=== PATIENT | female | born 1975 | race Caucasian/White ===

== ENCOUNTER → 2018-08-01 | Outpatient (CLI) | payer OTHER ==
[~2018-08-01] MED LIST: CETI10 PO; HYDACE5 PO; NUVA RING; SERT100 PO
[2018-08-03 14:08] LABS: HPV 16 Negative (Negative); HPV OTHER HR TYPES Negative (Negative)
[2018-08-06 05:07] LABS: HPV 18 Negative (Negative)
== END | disposition home or self-care (01) ==
LOC: LAB 19:03 → LAB SHORT 19:03
PROVIDERS: Obstetrics & Gynecology Gynecology
DX: Z12.4 Encounter for screening for malignant neoplasm of cervix (principal)
CPT/HCPCS: 87624; G0123

== ENCOUNTER → 2018-08-08 | Outpatient (CLI) | payer OTHER ==
[2018-08-08 15:16] LABS: Source, Urine Clean Catch
[2018-08-08 15:28] LABS: Appearance, Urine Cloudy (Clear); Color, Urine Yellow (P-Yellow); Leukocyte Esterase, Urine Trace (Neg); Nitrite, Urine Neg (Neg); Specific Gravity, Urine 1.015 (1.003-1.022)
[2018-08-08 15:29] LABS: Bilirubin, Urine Neg (Neg); Blood, Urine 2+ (Neg); Glucose Qualitative, Urine Neg (Normal); Ketones, Urine Neg (Neg); Protein, Urine Trace (Neg); Urobilinogen, Urine NORM (Normal)
[2018-08-08 15:35] LABS: Bacteria Not Seen /hpf; Red Blood Cells, Urine 50-100 /hpf (0-2); Squamous Epithelial Cells Few /hpf (Few)
== END ==
LOC: LAB SHORT 15:07 → LAB EV 15:07
PROVIDERS: Nurse Practitioner
DX: R35.0 Frequency of micturition (principal)
CPT/HCPCS: 81001

== ENCOUNTER → 2019-02-02 | Outpatient (CLI) | payer OTHER ==
[2019-02-03 12:42] LABS: Candida species (DNA Probe) Positive (NEGATIVE); G. vaginalis (DNA Probe) Negative (NEGATIVE); T. vaginalis (DNA Probe) Negative (NEGATIVE)
[2019-02-05 00:06] LABS: CHLAMYDIA TRACHOMATIS, NAA Negative (Negative); NEISSERIA GONORRHOEAE, NAA Negative (Negative)
== END | disposition home or self-care (01) ==
LOC: LAB EV 11:48 → LAB SHORT 11:48
PROVIDERS: Physician Assistant
DX: R10.2 Pelvic and perineal pain (principal)
CPT/HCPCS: 87086; 87480; 87491; 87510; 87591; 87660

== ENCOUNTER → 2019-06-10 | Outpatient (CLI) | payer OTHER | END | disposition home or self-care (01) | LOC: LAB SHORT 06-09 10:00 → OLS 10:00 → LAB FUT 05-08 09:10 | DX: C82.00 Follicular lymphoma grade I, unspecified site (principal) | CPT/HCPCS: 81050 ==

== ENCOUNTER → 2020-04-28 | Outpatient (CLI) | payer OTHER | END | disposition home or self-care (01) | LOC: LAB SHORT 14:30 → LAB EV 14:30 | DX: N39.0 Urinary tract infection, site not specified (principal) | CPT/HCPCS: 87077; 87086; 87186 ==

== ENCOUNTER 2020-06-05 12:04 | Emergency (ER) | payer OTHER ==
[~2020-06-05] VITALS: Ht 165.1 cm; Wt 79.8 kg
[~2020-06-05 12:04] MED LIST changes: -BUSP5 PO; -CITA20 PO; -LABE100 PO; -METF500 PO; -Nortriptyline H50 MG PO; -OMEP20ER PO; -POTCIT10 PO; -SUMA25 PO; -TAMS.4ER PO; -TOPI50 PO
[2020-06-05] MEDS ORDERED: BUSP5 PO (12:15)
[2020-06-05] MEDS ORDERED: CITA20 PO (12:15)
[2020-06-05] MEDS ORDERED: LABE100 PO (12:16)
[2020-06-05] MEDS ORDERED: METF500 PO (12:16)
[2020-06-05] MEDS ORDERED: Nortriptyline H50 MG PO (12:17)
[2020-06-05] MEDS ORDERED: OMEP20ER PO (12:17)
[2020-06-05] MEDS ORDERED: SUMA25 PO (12:18)
[2020-06-05] MEDS ORDERED: POTCIT10 PO (12:18)
[2020-06-05] MEDS ORDERED: TAMS.4ER PO (12:18)
[2020-06-05] MEDS ORDERED: TOPI50 PO (12:19)
[2020-06-05 12:35] LABS: BASOPHILS ABSOLUTE AUTO 0.05 K/mm3 (0.00-0.23); BASOPHILS PERCENT AUTO 1 % (0-2); EOSINOPHILS ABSOLUTE AUTO 0.45 K/mm3 (0.00-0.68); EOSINOPHILS PERCENT AUTO 8 % (0-6); Hematocrit 40.3 % (33.0-51.0); Hemoglobin 12.4 g/dL (11.5-16.0); IMMATURE GRAN ABSOLUTE AUTO 0.06 K/mm3 (0.00-0.10); IMMATURE GRAN PERCENT AUTO 1 % (0-1); LYMPHOCYTES ABSOLUTE AUTO 0.47 K/mm3 (0.84-5.20); LYMPHOCYTES PERCENT AUTO 8 % (21-46); MONOCYTES ABSOLUTE AUTO 0.58 K/mm3 (0.16-1.47); MONOCYTES PERCENT AUTO 10 % (4-13); Mean Corpuscular HGB 30.1 pg (26.0-34.0); Mean Corpuscular HGB Conc 30.8 g/dL (31.5-36.5); Mean Corpuscular Volume 98 fL (80-100); NEUTROPHILS ABSOLUTE AUTO 4.25 K/mm3 (1.96-9.15); NEUTROPHILS PERCENT AUTO 73 % (41-73); Platelet Count 267 K/mm3 (150-400); RDW Coefficient Variation 12.9 % (11.7-14.2); RDW Standard Deviation 46.2 fL (35.1-46.3); Red Blood Cell Count 4.12 M/mm3 (3.80-5.20); White Blood Cell Count 5.86 K/mm3 (4.00-11.30)
[2020-06-05 12:53] LABS: Alanine Aminotransfer (ALT/SGP 41 U/L (12-78); Albumin, Blood 3.8 g/dL (3.4-5.0); Albumin/Globulin Ratio 1.4 (0.8-1.8); Alk Phos 104 U/L (50-136); Anion Gap 2 mmol/L (6-16); Aspartate Aminotrans (AST/SGOT 17 U/L (12-37); Bilirubin, Total 0.2 mg/dL (0.1-1.0); Blood Urea Nitrogen 22 mg/dL (8-24); CO2, Blood 29 mmol/L (21-32); Calcium, Blood 9.2 mg/dL (8.5-10.1); Chloride, Blood 110 mmol/L (98-108); Creatinine, Blood 0.92 mg/dL (0.40-1.00); Globulin, Blood 2.8 g/dL (2.2-4.0); Glomerular Filtration Rate >60 (60-); Glucose, Blood 77 mg/dL (70-99); Potassium, Blood 6.2 mmol/L (3.5-5.5); Sodium, Blood 141 mmol/L (136-145); Total Protein, Blood 6.6 g/dL (6.4-8.2)
== END 2020-06-05 15:37 | disposition home or self-care (01) ==
LOC: ER 12:04
PROVIDERS: Emergency Medicine
DX: E87.5 Hyperkalemia (principal); Z88.5 Allergy status to narcotic agent; Z79.899 Other long term (current) drug therapy; Z79.84 Long term (current) use of oral hypoglycemic drugs; Z87.442 Personal history of urinary calculi
CPT/HCPCS: 80053; 85025; 93005; 93010; 96361; 96374; 96375; 99284-25; J1940; J7030

== ENCOUNTER → 2020-06-05 | Outpatient (CLI) | payer OTHER ==
[~2020-06-05] MED LIST changes: +BUSP5 PO; +CITA20 PO; +LABE100 PO; +METF500 PO; +Nortriptyline H50 MG PO; +OMEP20ER PO; +POTCIT10 PO; +SUMA25 PO; +TAMS.4ER PO; +TOPI50 PO
[2020-06-05 11:22] LABS: BASOPHILS ABSOLUTE AUTO 0.06 K/mm3 (0.00-0.23); BASOPHILS PERCENT AUTO 1 % (0-2); EOSINOPHILS ABSOLUTE AUTO 0.44 K/mm3 (0.00-0.68); EOSINOPHILS PERCENT AUTO 8 % (0-6); Hematocrit 40.3 % (33.0-51.0); Hemoglobin 13.1 g/dL (11.5-16.0); IMMATURE GRAN ABSOLUTE AUTO 0.03 K/mm3 (0.00-0.10); IMMATURE GRAN PERCENT AUTO 1 % (0-1); LYMPHOCYTES ABSOLUTE AUTO 0.39 K/mm3 (0.84-5.20); LYMPHOCYTES PERCENT AUTO 7 % (21-46); MONOCYTES ABSOLUTE AUTO 0.43 K/mm3 (0.16-1.47); MONOCYTES PERCENT AUTO 8 % (4-13); Mean Corpuscular HGB 30.8 pg (26.0-34.0); Mean Corpuscular HGB Conc 32.5 g/dL (31.5-36.5); Mean Corpuscular Volume 95 fL (80-100); NEUTROPHILS ABSOLUTE AUTO 4.04 K/mm3 (1.96-9.15); NEUTROPHILS PERCENT AUTO 75 % (41-73); Platelet Count 297 K/mm3 (150-400); RDW Coefficient Variation 13.1 % (11.7-14.2); Red Blood Cell Count 4.26 M/mm3 (3.80-5.20); White Blood Cell Count 5.39 K/mm3 (4.00-11.30)
[2020-06-05 11:30] LABS: Alanine Aminotransfer (ALT/SGP 47 U/L (12-78); Albumin, Blood 4.1 g/dL (3.4-5.0); Albumin/Globulin Ratio 1.2 (0.8-1.8); Alk Phos 112 U/L (40-126); Anion Gap 6 mmol/L (6-16); Aspartate Aminotrans (AST/SGOT 23 U/L (12-37); Bilirubin, Total 0.2 mg/dL (0.1-1.0); Blood Urea Nitrogen 23 mg/dL (8-24); Bun/Creatinine Ratio 26.1 (12.0-20.0); CO2, Blood 29 mmol/L (21-32); Calcium, Blood 9.6 mg/dL (8.5-10.1); Chloride, Blood 106 mmol/L (98-108); Creatinine, Blood 0.88 mg/dL (0.40-1.00); Globulin, Blood 3.4 g/dL (2.2-4.0); Glomerular Filtration Rate >60 (60-); Glucose, Blood 88 mg/dL (70-99); Sodium, Blood 141 mmol/L (136-145); Total Protein, Blood 7.5 g/dL (6.4-8.2)
[2020-06-05 11:37] LABS: Potassium, Blood 6.5 mmol/L (3.5-5.5)
== END | disposition home or self-care (01) ==
LOC: LAB EV 11:17 → LAB SHORT 11:17
PROVIDERS: Physician Assistant
DX: L29.9 Pruritus, unspecified (principal)
CPT/HCPCS: 80053; 85025

== ENCOUNTER → 2021-07-21 | Outpatient (CLI) | payer OTHER ==
[~2021-07-21] MED LIST changes: +BUSP5 PO; +CITA20 PO; +LABE100 PO; +METF500 PO; +Nortriptyline H50 MG PO; +OMEP20ER PO; +POTCIT10 PO; +SUMA25 PO; +TAMS.4ER PO; +TOPI50 PO
== END ==
LOC: LAB SHORT 10:09
DX: L08.9 Local infection of the skin and subcutaneous tissue, unspecified (principal)
CPT/HCPCS: 87070; 87077; 87147; 87186; 87205

== ENCOUNTER → 2021-07-30 | Outpatient (CLI) | payer OTHER ==
[2021-08-06 13:08] LABS: BRUSHITE 0.94 ratio (0.00-3.00); CALCIUM OXALATE 4.44 ratio (0.00-6.00); CALCIUM, URINE 102.2 mg/24 hr (0.0-320.0); CALCIUM, URINE 7.3 mg/dL (Not Estab.); CHLORIDE URINE 168 (38-210); CITRIC ACID (CITRATE) 23 mg/L (Not Estab.); CITRIC ACID(CITRATE) 32 mg/24 hr (320-1240); CREATININE, URINE 59.7 mg/dL (Not Estab.); CREATININE, URINE 835.8 mg/24 hr (800.0-1800.0); MAGNESIUM, URINE 4.8 mg/dL (Not Estab.); OSMOLALITY, URINE 586 (300-900); SODIUM, URINE 130 mmol/L (Not Estab.); SODIUM, URINE 182 (39-258); STRUVITE 0.01 ratio (0.00-1.00); URIC ACID 1.56 ratio (0.00-1.20); URINE VOLUME 1400 mL/24 hr (600-1600); URINE VOLUME (PRESERVATIVE) 1400 mL/24 hr (600-1600)
== END ==
LOC: LAB 11:00 → LAB SHORT 11:00
PROVIDERS: Urology
DX: N20.2 Calculus of kidney with calculus of ureter (principal)
CPT/HCPCS: 81003; 81050; 82131; 82140; 82340; 82436; 82507; 82570; 83735; 83935; 83945; 84105; 84133; 84300; 84392; 84560

== ENCOUNTER → 2021-09-29 | Outpatient (CLI) | payer OTHER | END | disposition home or self-care (01) | LOC: LAB SHORT 15:20 | DX: R73.03 Prediabetes (principal) | CPT/HCPCS: 36415; 83036 ==

== ENCOUNTER → 2022-03-30 | Outpatient (CLI) | payer OTHER ==
[2022-03-30 18:13] LABS: Appearance, Urine Hazy (Clear); Bilirubin, Urine Neg (Neg); Blood, Urine 1+ (Neg); Color, Urine Yellow (P-Yellow); Glucose Qualitative, Urine Neg (Neg); Ketones, Urine Neg (Neg); Leukocyte Esterase, Urine 3+ (Neg); Nitrite, Urine Neg (Neg); Protein, Urine 1+ (Neg); Specific Gravity, Urine 1.015 (1.003-1.022); Urobilinogen, Urine NORM (Normal)
[2022-03-30 18:38] LABS: White Blood Cells, Urine TNTC /hpf (0-5)
[2022-03-30 18:39] LABS: Bacteria Few /hpf; Squamous Epithelial Cells Few /hpf (Few)
[2022-03-30 18:40] LABS: Transitional Epithelial Cells Few /hpf (0-Rare)
[2022-03-31 10:23] LABS: Candida species (DNA Probe) Negative (NEGATIVE); G. vaginalis (DNA Probe) Positive (NEGATIVE); T. vaginalis (DNA Probe) Negative (NEGATIVE)
== END ==
LOC: LAB SHORT 16:30
PROVIDERS: Family Medicine
DX: R30.0 Dysuria (principal); L29.2 Pruritus vulvae
CPT/HCPCS: 81001; 87077; 87086; 87186; 87480; 87510; 87660

== ENCOUNTER → 2022-06-06 | Outpatient (CLI) | payer OTHER ==
[2022-06-06 18:38] LABS: White Blood Cells, Urine 25-50 /hpf (0-5)
[2022-06-06 18:39] LABS: Bacteria Few /hpf; Squamous Epithelial Cells Few /hpf (Few)
[2022-06-06 18:40] LABS: Hyaline Casts 0-2 /lpf (0-2); Transitional Epithelial Cells Rare /hpf (0-Rare)
== END | disposition home or self-care (01) ==
LOC: LAB 16:00 → LAB SHORT 16:00
PROVIDERS: Family Medicine
DX: R39.15 Urgency of urination (principal)
CPT/HCPCS: 81015

== ENCOUNTER → 2022-06-06 | Outpatient (CLI) | payer OTHER | END | disposition home or self-care (01) | LOC: LAB 16:00 → LAB SHORT 16:00 | DX: R39.15 Urgency of urination (principal) | CPT/HCPCS: 87077; 87086; 87186 ==

== ENCOUNTER → 2022-06-27 | Outpatient (CLI) | payer OTHER ==
[2022-06-30 01:07] LABS: CHLAMYDIA TRACHOMATIS, NAA Negative (Negative); HPV 16 Negative (Negative); HPV 18 Negative (Negative); HPV OTHER HR TYPES Negative (Negative)
== END | disposition home or self-care (01) ==
LOC: LAB SHORT 19:01 → LAB 19:01
PROVIDERS: Advanced Practice Midwife
DX: Z01.419 Encounter for gynecological examination (general) (routine) without abnormal findings (principal); Z11.3 Encounter for screening for infections with a predominantly sexual mode of transmission
CPT/HCPCS: 87491; 87591; 87624; G0123

== ENCOUNTER 2022-10-21 08:10 | Day surgery (SDC) | payer OTHER ==
[~2022-10-21] VITALS: Ht 165.1 cm; Wt 79.1 kg
[2022-10-21] MEDS ORDERED: VENL75ER (08:55)
[2022-10-21] MEDS ORDERED: EFFEXOR XR150 MG (08:55)
== END 2022-10-21 11:25 | disposition home or self-care (01) ==
LOC: ORSCSDS 08:10
PROVIDERS: Internal Medicine Gastroenterology
PROC: 0DB98ZX Excision of Duodenum, Via Natural or Artificial Opening Endoscopic, Diagnostic (ICD-10-PCS; principal; 2022-10-21 09:45)
PROC: 0DB78ZX Excision of Stomach, Pylorus, Via Natural or Artificial Opening Endoscopic, Diagnostic (ICD-10-PCS; principal; 2022-10-21 09:45)
PROC: 0DBN8ZX Excision of Sigmoid Colon, Via Natural or Artificial Opening Endoscopic, Diagnostic (ICD-10-PCS; principal; 2022-10-21 09:45)
DX: R10.13 Epigastric pain (principal); K59.00 Constipation, unspecified; R19.4 Change in bowel habit; R11.2 Nausea with vomiting, unspecified; D12.5 Benign neoplasm of sigmoid colon; F41.8 Other specified anxiety disorders; J45.909 Unspecified asthma, uncomplicated; Z85.72 Personal history of non-Hodgkin lymphomas; Z79.899 Other long term (current) drug therapy
CPT/HCPCS: 82947; 88305; 88342; J2704; J7120

== ENCOUNTER → 2023-08-11 | Outpatient (CLI) | payer OTHER ==
[~2023-08-11] MED LIST changes: +EFFEXOR XR150 MG; +VENL75ER
== END | disposition home or self-care (01) ==
LOC: LAB SHORT 17:33 → LAB 17:33
DX: R82.79 Other abnormal findings on microbiological examination of urine (principal)
CPT/HCPCS: 87077; 87086; 87186

== ENCOUNTER → 2023-12-01 | Outpatient (CLI) | payer OTHER | LOC: LAB 14:09 → LAB SHORT 14:09 | DX: D50.9 Iron deficiency anemia, unspecified (principal) ==

== ENCOUNTER 2024-01-18 11:52 | Day surgery (SDC) | payer OTHER ==
[2024-01-18] MEDS ORDERED: [UNRECOGNIZED DRUG - MIXTURE] RIGHTEYE SCH (14:10)
[2024-01-18] MEDS ORDERED: [UNRECOGNIZED DRUG - MIXTURE] RIGHTEYE SCH (16:05)
--- NOTE | 2024-01-18 17:15 | NUR ---
PATIENT RECIEVED 1ST DOSE OF EYE DROPS, TOBRA AND VANCO, 5 MINUTES APART. PATIENT AND HER DAUGHTER AND ANOTHER FAMILY MEMBER EDUCATED ON HOW TO ADMINISTER EYE DROPS AND FREQUENCY AND DOSAGE OF THE EYE DROPS. PATIENT AND FAMILY DEMONSTRATED PROPER ADMINISTRATION AND DENIED ANY QUESTIONS
== END 2024-01-18 17:05 | disposition home or self-care (01) ==
LOC: ATC 11:52
DX: H16.001 Unspecified corneal ulcer, right eye (principal); Z79.84 Long term (current) use of oral hypoglycemic drugs; Z79.899 Other long term (current) drug therapy
CPT/HCPCS: 99211; A9270; J3260; J3370

== ENCOUNTER 2024-02-01 02:21 | Day surgery (SDC) | payer OTHER ==
[2024-02-01] MEDS ORDERED: PEG RIGHTEYE SCH ×2 (07:15)
[2024-02-01] MEDS ORDERED: [UNRECOGNIZED DRUG - OTHER] RIGHTEYE SCH (07:15)
[2024-02-01] MEDS ORDERED: [UNRECOGNIZED DRUG - MIXTURE] RIGHTEYE SCH (07:15)
[2024-02-01] MEDS ORDERED: HYPROMELLOSE RIGHTEYE SCH ×2 (07:15)
[2024-02-01] MEDS ORDERED: [UNRECOGNIZED DRUG - OTHER] RIGHTEYE SCH (07:15)
[2024-02-01 09:40] VITALS: BP 132/86
--- NOTE | 2024-02-01 10:15 | NUR ---
EYE DROPS ADMINISTERED TO PATIENT 5 MINUTES APART. TWO FAMILY MEMBERS PRESENT WHO SAID THEYWILL ASSIST WITH ADMINISTRATION. DEMONSTRATED PROPER ADMINISTRATION AND HAND HYGIENE. PATIENT QUESTIONED ANSWERED. ENCOURAGED PATIENT TO CALL DR TREADWELL OFFICE OR ANSWERING SERVICE WITH ANY FURTHER QUESTIONS OR CONCERNS AND TO FOLLOW HIS INSTRUCTIONS FOR MEDICATION ADMINISTRATION. PATIENT DENIED FURTHER QUESTIONS OR CONCERNS AT THE TIME OF D/C
== END 2024-02-01 10:10 | disposition home or self-care (01) ==
LOC: ATC 02:21
DX: H16.001 Unspecified corneal ulcer, right eye (principal); J45.909 Unspecified asthma, uncomplicated; Z88.5 Allergy status to narcotic agent
CPT/HCPCS: 99211; A9270; J0285; J0690; J3260

== ENCOUNTER 2024-10-07 19:17 | Emergency (ER) | payer OTHER ==
[~2024-10-07] VITALS: Ht 165.1 cm; Wt 88.5 kg
[2024-10-07 19:50] LABS: BASOPHILS ABSOLUTE AUTO 0.04 K/mm3 (0.00-0.23); BASOPHILS PERCENT AUTO 0 % (0-2); EOSINOPHILS ABSOLUTE AUTO 0.01 K/mm3 (0.00-0.68); EOSINOPHILS PERCENT AUTO 0 % (0-6); Hematocrit 38.8 % (33.0-51.0); Hemoglobin 12.9 g/dL (11.5-16.0); IMMATURE GRAN ABSOLUTE AUTO 0.06 K/mm3 (0.00-0.10); IMMATURE GRAN PERCENT AUTO 1 % (0-1); LYMPHOCYTES ABSOLUTE AUTO 0.64 K/mm3 (0.84-5.20); LYMPHOCYTES PERCENT AUTO 6 % (21-46); MONOCYTES ABSOLUTE AUTO 0.83 K/mm3 (0.16-1.47); MONOCYTES PERCENT AUTO 7 % (4-13); Mean Corpuscular HGB 29.9 pg (26.0-34.0); Mean Corpuscular HGB Conc 33.2 g/dL (31.5-36.5); Mean Corpuscular Volume 90 fL (80-100); Mean Platelet Volume 9.5 fL (9.1-12.4); NEUTROPHILS PERCENT AUTO 86 % (41-73); Platelet Count 207 K/mm3 (150-400); RDW Coefficient Variation 13.6 % (11.7-14.2); RDW Standard Deviation 45.3 fL (35.1-46.3); Red Blood Cell Count 4.31 M/mm3 (3.80-5.20); White Blood Cell Count 11.58 K/mm3 (4.00-11.30)
[2024-10-07 20:12] LABS: Albumin/Globulin Ratio 1.3 (0.8-1.8); Bilirubin, Total 0.5 mg/dL (0.1-1.0); Bun/Creatinine Ratio 16.5 (12.0-20.0); Creatinine, Blood 0.97 mg/dL (0.40-1.00); Potassium, Blood 3.5 mmol/L (3.5-5.5)
[2024-10-07 21:00] LABS: Influenza A, PCR NEGATIVE (NEGATIVE); Influenza B, PCR NEGATIVE (NEGATIVE); SARS-Cov-2 (COVID-19) PCR, MMC NEGATIVE (NEGATIVE)
[2024-10-07 21:02] LABS: Resp Syncytial Virus, PCR POSITIVE (NEGATIVE)
[2024-10-07] MEDS ORDERED: Lactated Ringer's 1,000 ML IV ONE (21:05)
[2024-10-07] MEDS ORDERED: Acetaminophen 500 MG Tab PO ONE ×2 (21:25→21:40)
[2024-10-08] MEDS ORDERED: Ketorolac Tromethamine 15mg Vial IV ONE (00:05)
[2024-10-08 00:38] LABS: Source, Urine Clean Catch
[2024-10-08 00:55] LABS: Bilirubin, Urine Neg (Neg); Blood, Urine Neg (Neg); Glucose Qualitative, Urine Neg (Neg); Ketones, Urine Neg (Neg); Leukocyte Esterase, Urine 1+ (Neg); Nitrite, Urine Neg (Neg); Protein, Urine Neg (Neg); Specific Gravity, Urine 1.005 (1.003-1.022); Urobilinogen, Urine NORM (Normal); pH, Urine 6.5 (5.0-8.0)
[2024-10-08 01:15] LABS: Appearance, Urine Clear (Clear); Color, Urine Pale Yellow (P-Yellow)
[2024-10-08 01:17] LABS: Bacteria Few /hpf; Red Blood Cells, Urine 0-2 /hpf (0-2); Squamous Epithelial Cells Few /hpf (Few); White Blood Cells, Urine 0-2 /hpf (0-5)
[2024-10-08 02:00] VITALS: BP 138/90
[2024-10-08] MEDS ORDERED: Amoxicillin/Clavulanate K 875 MG Tab PO ONE (03:15)
[2024-10-08] MEDS ORDERED: Doxycycline Hyclate 100 MG TAB PO ONE (03:15)
[2024-10-08] MEDS ORDERED: AMOCLA875 PO (03:16)
[2024-10-08] MEDS ORDERED: Doxycycline Mo100 M1 PO (03:16)
== END 2024-10-08 03:35 | disposition home or self-care (01) ==
LOC: ER 19:17
PROVIDERS: Physician Assistant; Student in an Organized Health Care Education/Training Program
DX: R06.02 Shortness of breath (principal); B97.4 Respiratory syncytial virus as the cause of diseases classified elsewhere; R00.0 Tachycardia, unspecified; G43.909 Migraine, unspecified, not intractable, without status migrainosus; J40 Bronchitis, not specified as acute or chronic; R05.9 Cough, unspecified; Z88.5 Allergy status to narcotic agent; Z79.84 Long term (current) use of oral hypoglycemic drugs; Z79.899 Other long term (current) drug therapy
CPT/HCPCS: 0241U; 71046; 71260; 80053; 81001; 81025; 83605; 85025; 87086; 93005; 93010; 96361; 96374-59; 99285-25; A9270; J1885; J7120; Q9967